=== PATIENT | female | born 1990 | race Caucasian/White ===

== ENCOUNTER 2020-03-07 19:47 | Emergency (ER) | payer MEDICAID ==
[2020-03-07] MEDS ORDERED: PANTOPRAZOLE SODIUM 40 MG VIAL IV ONE (20:43)
--- NOTE | 2020-03-07 20:47 | ER Document Report ---
ED Medical Screen (RME) - General Chief Complaint: Abdominal Pain Stated Complaint: ABDOMINAL PAIN Time Seen by Provider: 03/07/20 20:39 Primary Care Provider: ANH GUEVARA [Primary Care Provider] - Follow up as needed Notes: HPI: 29-year-old female with history of Crohn's disease presenting by EMS and sent to triage for evaluation for possible upper GI bleed. Patient states she began having pain across the abdomen generally that she normally associates with her Crohn's 2 days ago. Started having vomiting this afternoon states it was very dark. States that her mother who was a nurse told her it looked like old blood. Patient follows with gastroenterology at [facility] for her Crohn's. States she has never thrown up blood before. PHYSICAL EXAMINATION: Patient appears mildly uncomfortable is generalized abdominal pain on palpation limited exam by triage positioning. Bowel sounds are present in all quadrants. Not significantly tachycardic. I have greeted and performed a rapid initial assessment of this patient. A comprehensive ED assessment and evaluation of the patient, analysis of test results and completion of medical decision making process will be conducted by an additional ED providers. - Related Data Allergies/Adverse Reactions: Sulfa (Sulfonamide Antibiotics) Allergy (Verified 05/26/12 18:22) Home Medications: Phenergan. Disibramine. Oxycodone. morphine Past Medical History - Social History Chew tobacco use (# tins/day): No Drug Abuse: None GI Medical History: Reports: Hx Crohn's Disease - on asacol Psychiatric Medical History: Reports: Hx Depression - Immunizations Hx Diphtheria, Pertussis, Tetanus Vaccination: Yes Physical Exam - Vital signs Vitals: Temp Pulse Resp BP Pulse Ox 97.9 F 83 16 131/71 H 100 03/07/20 19:54 03/07/20 19:54 03/07/20 19:54 03/07/20 19:54 03/07/20 19:54 Course - Vital Signs Vital signs: Temp Pulse Resp BP Pulse Ox 97.9 F 83 16 131/71 H 100 03/07/20 20:35 03/07/20 19:54 03/07/20 19:54 03/07/20 19:54 03/07/20 19:54 Doctor's Discharge - Discharge Referrals: ANH GUEVARA [Primary Care Provider] - Follow up as needed
[2020-03-07] MEDS ORDERED: HYDROMORPHONE HCL INJ/PF 2 MG/ML AMPULE IV ONE (21:43)
[2020-03-07] MEDS ORDERED: ONDANSETRON HCL INJ/PF 4 MG/2 ML SDV IV ONE (21:44)
[2020-03-07] MEDS ORDERED: NORMAL SALINE 1000 ML 1,000 ML IV ONE (21:45)
--- NOTE | 2020-03-07 22:02 | ER Document Report ---
Entered by TINO PORTILLO SCRIBE 03/07/20 [id number] Acting as scribe for:OSCAR SNELL IV, MD ED GI/ - General Chief Complaint: Abdominal Pain Stated Complaint: ABDOMINAL PAIN Time Seen by Provider: 03/07/20 20:39 Primary Care Provider: ANH GUEVARA [NO ALEXANDRA MD] - Follow up as needed Mode of Arrival: Medic Information source: Patient Notes: This 29 year old female patient with a history of Crohn's disease brought in by EMS from home presents to the ED today with complaints of generalized abdominal pain that started x2 days ago. Patient states that the pain is typical of a flare-up and that she usually manages it with Oxycodone, Morphine, and Phenergan, but the pain was worse. She also reports that she had an episode of dark brown emesis yesterday that her grandmother, who was a nurse, said looked like blood. She mentions loose stools with small amounts of blood which is also typical of a flare-up, but denies dark stools. Patient received 8 mg Zofran, 50 mg Benadryl, and 100 mg Fentanyl via EMS. Patient is followed by gastroent erology at [facility]. - Related Data Allergies/Adverse Reactions: Sulfa (Sulfonamide Antibiotics) Allergy (Verified 05/26/12 18:22) Home Medications: Phenergan. Disibramine. Oxycodone. morphine Past Medical History - General Information source: Patient - Social History Smoking Status: Never Smoker Cigarette use (# per day): No Chew tobacco use (# tins/day): No Smoking Education Provided: No Drug Abuse: None Family History: Reviewed & Not Pertinent Patient has suicidal ideation: No Patient has homicidal ideation: No GI Medical History: Reports: Hx Crohn's Disease - on asacol Psychiatric Medical History: Reports: Hx Depression - Immunizations Hx Diphtheria, Pertussis, Tetanus Vaccination: Yes Review of Systems - Review of Systems Constitutional: No symptoms reported EENT: No symptoms reported Cardiovascular: No symptoms reported Respiratory: No symptoms reported Gastrointestinal: See HPI, Abdominal pain, Nausea, Vomiting, Blood in vomit. denies: Black stools Genitourinary: No symptoms reported Female Genitourinary: No symptoms reported Musculoskeletal: No symptoms reported Skin: No symptoms reported Hematologic/Lymphatic: No symptoms reported Neurological/Psychological: No symptoms reported -: Yes All other systems reviewed and negative Physical Exam - Vital signs Vitals: Temp Pulse Resp BP Pulse Ox 97.9 F 83 16 131/71 H 100 03/07/20 19:54 03/07/20 19:54 03/07/20 19:54 03/07/20 19:54 03/07/20 19:54 - General General appearance: Appears well, Alert In distress: None - HEENT Head: Normocephalic, Atraumatic Eyes: Normal Pupils: PERRL - Respiratory Respiratory status: No respiratory distress Chest status: Nontender Breath sounds: Normal Chest palpation: Normal - Cardiovascular Rhythm: Regular Heart sounds: Normal auscultation Murmur: No Friction rub: No Gallop: None auscultated - Abdominal Inspection: Normal Distension: No distension Bowel sounds: Normal Tenderness: Tender - Tenderness to palpation of bilateral lower quadrants, Other - Abdomen soft Organomegaly: No organomegaly - Back Back: Normal, Nontender - Extremities General upper extremity: Normal inspection General lower extremity: Normal inspection - Neurological Neuro grossly intact: Yes Orientation: AAOx4 [place] Coma Scale Eye Opening: Spontaneous [place] Coma Scale Verbal: Oriented [place] Coma Scale Motor: Obeys Commands Zandra Coma Scale Total: 15 - Psychological Associated symptoms: Normal affect, Normal mood - Skin Skin Temperature: Warm Skin Moisture: Dry Skin Color: Normal Course - Re-evaluation Re-evalutation: 03/08/20 02:40 Results of ED MSE discussed with patient. All questions were answered prior to discharge. Emergency signs and symptoms, reasons to return to the emergency department discussed with patient. - Vital Signs Vital signs: Temp Pulse Resp BP Pulse Ox 97.9 F 83 16 116/79 98 03/07/20 20:35 03/07/20 19:54 03/08/20 01:20 03/08/20 01:20 03/08/20 01:20 - Laboratory Result Diagrams: 03/07/20 22:05 03/07/20 23:57 - Diagnostic Test Radiology reviewed: Reports reviewed Discharge - Discharge Clinical Impression: Gastritis Qualifiers: Gastritis type: unspecified gastritis Chronicity: acute Gastritis bleeding: presence of bleeding unspecified Qualified Code(s): K29.00 - Acute gastritis without bleeding Condition: Stable Disposition: HOME, SELF-CARE Additional Instructions: Return to the Emergency Department without delay if any worse. HOME CARE INSTRUCTIONS & INFORMATION: Thank you for choosing us for your medical needs. We hope you're satisfied with the care you received. After you leave, you must properly care for your problem and, at the same time, observe its progress. Any condition can change. Some illnesses can change rapidly over hours or days. If your condition worsens, return to the Emergency Department or see your physician promptly. ABOUT YOUR X-RAYS AND EKG'S: If you had an EKG or X-rays taken, they have been read by the Emergency Physician. The X-rays and EKG's will also be read by a Radiologist or [facility] within 24 hours. If discrepancies are noted, you will be notified by telephone. Please be certain the ED has a correct telephone number & address where you can be reached. Also, realize that some fractures or abnormalities do not show up on initial X-rays. If your symptoms continue, see your physician. ABOUT YOUR LABORATORY TEST: If you had laboratory tests, the results have been reviewed by the Emergency Physician. Some test results (for example cultures) may not be available for several days. You will be contacted if any test result shows you need additional treatment. Please be certain the ED has a correct telephone number and address where you can be reached. ABOUT YOUR MEDICATIONS: You will receive instructions on how to take your medicine on the prescription label you receive. Additional information may be provided by the Pharmacy. If you have questions afterwards, call the ED for clarification or further instructions. Some prescribed medications may cause drowsiness. Do not perform tasks such as driving a car or operating machinery without consulting your Pharmacist. If you feel you need a refill of pain med ication, your condition will need re-evaluation. Please do not call for a refill of any medication. ABOUT YOUR SIGNATURE: Signature of this document acknowledges to followin. Understanding that you received emergency treatment and that you may be released before al medical problems are known or treated. Please be certain the ED has a correct phone number & address where you can be reached. 2. Acknowledgement that you will arrange for follow-up care as recommended. 3. Authorization for the Emergency Physician to provide information to your follow-up Physician in order to maximize your care. AT ANY TIME, IF YOUR SYMPTOMS CHANGE SIGNIFICANTLY OR WORSEN OR YOU DEVELOP NEW SYMPTOMS, RETURN TO THE EMERGENCY DEPARTMENT IMMEDIATELY FOR RE-EVALUATION. OUR GOAL IS TO PROVIDE EXCELLENT MEDICAL CARE! WE HOPE THAT WE HAVE MET YOUR EXPECTATIONS DURING YOUR EMERGENCY DEPARTMENT VISIT AND THAT YOU FEEL YOU HAVE RECEIVED EXCELLENT CARE! Gastritis You have an inflammation of the stomach called gastritis. This commonly causes upper abdominal pain, nausea, and vomiting. In severe cases, bleeding of the stomach lining can occur. Gastritis can be caused by bacteria or viruses, alcohol, or stomach-irritating drugs. Begin with sips of clear liquids. Take increasing amounts of fluid over the first 24 hours. Then start small amounts of bland foods (such as dry toast, applesauce, mashed potato). Gradually resume your usual diet. You should take antacids every two hours until the pain has subsided. Acid-suppressing drugs may be prescribed as well. Avoid aspirin, caffeine, tobacco, and alcohol. If the abdominal pain worsens, or there is evidence of major bleeding in the stomach (such as black, tarry stool, bloody or black vomit, or lightheadedness), you should return immediately. Call the doctor if you aren't improved in 24 to 36 hours. Prescriptions: Pantoprazole Sodium [Protonix [address] Tablet] 40 mg PO QAM #10 tablet. Referrals: LOCALMD,NO [NO LOCAL MD] - Follow up as needed I personally performed the services described in the documentation, reviewed and edited the documentation which was dictated to the scribe in my presence, and it accurately records my words and actions.
[2020-03-07 22:21] LABS: ABSOLUTE BASOPHILS # (AUTO) 0.1 10^3/uL (0.0-0.2); ABSOLUTE EOSINOPHILS # (AUTO) 0.1 10^3/uL (0.0-0.6); ABSOLUTE LYMPHOCYTES (AUTO) 1.1 10^3/uL (0.5-4.7); ABSOLUTE MONOCYTES (AUTO) 0.2 10^3/uL (0.1-1.4); ABSOLUTE NEUT (AUTO) 4.9 10^3/uL (1.7-8.2); BASOPHILS % (AUTO) 1.4 % (0-2); EOSINOPHILS % (AUTO) 1.2 % (0-6); HEMATOCRIT 40.3 % (36.0-47.0); HEMOGLOBIN 13.3 g/dL (12.0-15.5); LYMPHOCYTES % (AUTO) 17.4 % (13-45); MEAN CORPUSCULAR HEMOGLOBIN 27.6 pg (27.0-33.4); MEAN CORPUSCULAR HGB CONC 32.9 g/dL (32.0-36.0); MEAN CORPUSCULAR VOLUME 84 fl (80-97); MONOCYTES % (AUTO) 3.6 % (3-13); PLATELET COUNT 340 10^3/uL (150-450); RED BLOOD COUNT 4.82 10^6/uL (3.72-5.28); SEGMENTED NEUTROPHILS % (AUTO) 76.4 % (42-78); TOTAL CELLS COUNTED % (AUTO) 100 %; WHITE BLOOD COUNT 6.4 10^3/uL (4.0-10.5)
[2020-03-07 22:28] LABS: INTERNATIONAL RATION (INR) 0.97
[2020-03-08 00:27] LABS: ALBUMIN 4.7 g/dL (3.5-5.0); ALKALINE PHOSPHATASE 108 U/L (38-126); ANION GAP 10 (5-19); ASPARTATE AMINO TRANSFERASE 19 U/L (14-36); BILIRUBIN,TOTAL 0.5 mg/dL (0.2-1.3); BLOOD UREA NITROGEN 7 mg/dL (7-20); CALCIUM 9.7 mg/dL (8.4-10.2); CARBON DIOXIDE 24 mmol/L (22-30); CHLORIDE 105 mmol/L (98-107); GLUCOSE 85 mg/dL (75-110); POTASSIUM 4.4 mmol/L (3.6-5.0); TOTAL PROTEIN 7.8 g/dL (6.3-8.2)
[2020-03-08] MEDS ORDERED: HYDROMORPHONE HCL INJ/PF 2 MG/ML AMPULE IV ONE (01:06)
--- NOTE | 2020-03-08 01:58 | RADIOLOGY REPORT (SQ) ---
EXAM DESCRIPTION: [facility]: CT ABDOMEN PELVIS WITH IV CONTRAST CLINICAL HISTORY: 29 years Female; abd pain crohns hx, ? gi bleed; TECHNIQUE: CT of the abdomen and pelvis using intravenous contrast. All CT scans at this facility use dose modulation, iterative reconstruction, and/or weight based dosing when appropriate to reduce radiation dose to as low as reasonably achievable. COMPARISON: CT 05/04/2012 FINDINGS: Abdomen: Stomach: No significant distention or surrounding edema. Liver:No focal lesions. No intrahepatic ductal distention. Gallbladder:Nondistended Pancreas:Within normal limits Spleen:Within normal limits Right kidney:No hydronephrosis. No focal lesion. Left kidney:No hydronephrosis. No focal lesion. Adrenal glands:Within normal limits Vascular structures:Within normal limits Pelvis: Small bowel: Nondistended. No acute mesenteric edema. No wall thickening. Appendix: Not reliably identified. No regional edema. Colon: Moderate proximal colonic fecal retention. No acute pericolonic edema or significant distention. No free intraperitoneal fluid or air. Bones: No acute bone findings. Sacroiliac joints are normal. Bladder: Unremarkable. Uterus and ovaries are unremarkable. No acute pelvic soft tissue edema. IMPRESSION: 1. Normal CT of the abdomen and pelvis with contrast.
[2020-03-08] MEDS ORDERED: HYDROCODONE/ACETAMINOPHEN 5-325 MG (6 TAB/ER DISP) PO PRN (02:39)
[2020-03-08] MEDS ORDERED: PROMETHAZINE HCL INJ 25 MG/1 ML VIAL IV ONE (02:39)
[2020-03-08] MEDS ORDERED: ONDANSETRON HCL INJ/PF 4 MG/2 ML SDV IV ONE (02:40)
[2020-03-08 03:35] VITALS: BP 139/94
== END 2020-03-08 03:34 | disposition home or self-care (01) ==
LOC: ER 19:47
DX: K29.70 Gastritis, unspecified, without bleeding (principal); K50.90 Crohn's disease, unspecified, without complications; F32.9 Major depressive disorder, single episode, unspecified; Z79.899 Other long term (current) drug therapy; Z79.891 Long term (current) use of opiate analgesic
CPT/HCPCS: 96376; 99284; 96361; 96374; 96375; 86900; 86901; 36415; 86850; 83690; 84703; 85025; 85610; 80053; 74177; J1170 ×2; C9113; J2550; J2405 ×2; J7030

== ENCOUNTER 2020-05-02 19:08 | Emergency (ER) | payer MEDICAID ==
[2020-05-02] MEDS ORDERED: PROMETHAZINE HCL INJ 25 MG/1 ML VIAL IM ONE (21:10)
[2020-05-02] MEDS ORDERED: HYDROMORPHONE HCL INJ/PF 2 MG/ML AMPULE IM ONE (21:10)
--- NOTE | 2020-05-02 21:18 | ER Document Report ---
ED General - General Chief Complaint: Abdominal Pain Stated Complaint: VOMITING Time Seen by Provider: 05/02/20 20:32 Mode of Arrival: Ambulatory Information source: Patient Notes: Patient is a 29-year-old female coming in today with intractable abdominal pain, nausea and vomiting, some hemoptysis, and hematochezia. She has a history of Crohn's disease. She is on immune modulators for this. Does not feel that her disease is well controlled on current regimen. Patient reports being on very strong pain medicine and Phenergan at home. Says that her symptoms are usually very well managed at home. She has been vomiting uncontrollably for about the past 24 hours does not feel like her medicine has a chance to work. - Related Data Allergies/Adverse Reactions: Sulfa (Sulfonamide Antibiotics) Allergy (Verified 05/02/20 20:12) Past Medical History - General Information source: Patient - Social History Smoking Status: Former Smoker Family History: Reviewed & Not Pertinent Patient has homicidal ideation: No GI Medical History: Reports: Hx Crohn's Disease - on asacol Psychiatric Medical History: Reports: Hx Depression - Immunizations Hx Diphtheria, Pertussis, Tetanus Vaccination: Yes Review of Systems - Review of Systems Notes: Constitutional: No fevers. No chills. EENT: No eye redness. No eye pain. No ear pain. No sore throat. Cardiovascular: No chest pain. No palpitations. Respiratory: No cough. No shortness of breath. No respiratory distress. Gastrointestinal: +abdominal pain. Positive nausea, positive vomiting, positive hematochezia, positive hematemesis Genitourinary: Deferred Musculoskeletal: Atraumatic. No swelling. No deformities. Skin: No rash or lesions. Lymphatic: No swollen lymph nodes. Neurologic: No headache. No syncope. Psychiatric: No suicidal or homicidal ideation. Physical Exam - Vital signs Vitals: Temp Pulse Resp BP Pulse Ox 98.9 F 103 H 20 113/95 H 100 05/02/20 19:23 05/02/20 19:23 05/02/20 19:23 05/02/20 19:23 05/02/20 19:23 - Notes Notes: General: Well-developed, well-nourished. In no acute distress. Non-toxic appearing. Appears uncomfortable Cardiac: Well-perfused. Regular rate and rhythm. No murmurs, rubs, or gallops. Pulmonary: No respiratory distress. No cyanosis. Bilateral lung boogie are clear to auscultation. Abdominal: Non-distended. Non-rigid. Diffuse tenderness to palpation. No guarding or rebound. Bowel sounds present all 4 quadrants HEENT: Head is atraumatic. Conjunctivae not reddened. No tearing. PERRL. EOMI. Orbits atraumatic. No periorbital swelling or erythema. Oropharynx is without erythema, swelling, or exudates. Neck: Supple. No adenopathy. No meningismus. Dermatologic: Warm with good turgor. No rash. Atraumatic. Chest: Atraumatic. No chest wall tenderness to palpation. Musculoskeletal: Moves all extremities well. No range of motion deficits. no muscular or joint tenderness. No paraspinal muscle tenderness. no midline spinal tenderness or step-off. Genitourinary: Examination deferred Neurologic: No gross neurologic deficits. Psychiatric: Normal mood. Course - Re-evaluation Re-evalutation: 05/02/20 21:17 Nurses having difficulty finding an IV site. In the meantime we will give patient some Phenergan and Dilaudid IM 05/03/20 01:29 Patient has completely normal labs. No elevated lipase. No positive urinalysis. She is not actively throwing up here. Her hemoglobin is slightly low at 11. She apparently has the medications at home manage her pain very well. I do not see any reason to keep her in the ER this evening. She is tolerating fluids. She can call her GI doctor in the morning. Return if worse - Vital Signs Vital signs: Temp Pulse Resp BP Pulse Ox 98.9 F 103 H 20 113/95 H 100 05/02/20 19:23 05/02/20 19:23 05/02/20 19:23 05/02/20 19:23 05/02/20 19:23 - Laboratory Result Diagrams: 05/02/20 22:25 05/02/20 22:25 Laboratory results interpreted by me: 05/02/20 22:25 Hgb 11.4 L Hct 34.4 L Discharge - Discharge Clinical Impression: History of Crohn's disease Abdominal pain Qualifiers: Abdominal location: unspecified location Qualified Code(s): R10.9 - Unspecified abdominal pain Nausea and vomiting Qualifiers: Vomiting type: unspecified Vomiting Intractability: non-intractable Qualified Code(s): R11.2 - Nausea with vomiting, unspecified Condition: Good Disposition: HOME, SELF-CARE Instructions: Abdominal Pain ([facility]), Intravenous (IV) Fluids ([facility]), Antinausea Medication ([facility]), Reglan ([facility]) Additional Instructions: Use your normal pain medications. You can use Reglan in addition to Phenergan as needed for nausea. Call your veneer manufacturer for follow-up appointment. Return to the ED if somehow worse. Prescriptions: Metoclopramide HCl [Reglan 10 mg Tablet] 10 mg PO Q6HP PRN #30 tablet PRN Reason:
[2020-05-02] MEDS ORDERED: PROMETHAZINE HCL INJ 25 MG/1 ML VIAL IV ONE (21:37)
[2020-05-02] MEDS ORDERED: HYDROMORPHONE HCL INJ/PF 2 MG/ML AMPULE IV ONE ×2 (21:37→22:47)
[2020-05-02] MEDS: NORMAL SALINE 1000 ML 1,000 ML IV PRN (21:41)
[2020-05-02 22:37] LABS: ABSOLUTE BASOPHILS # (AUTO) 0.1 10^3/uL (0.0-0.2); ABSOLUTE EOSINOPHILS # (AUTO) 0.1 10^3/uL (0.0-0.6); ABSOLUTE LYMPHOCYTES (AUTO) 1.1 10^3/uL (0.5-4.7); ABSOLUTE MONOCYTES (AUTO) 0.3 10^3/uL (0.1-1.4); ABSOLUTE NEUT (AUTO) 3.9 10^3/uL (1.7-8.2); BASOPHILS % (AUTO) 1.2 % (0-2); EOSINOPHILS % (AUTO) 1.8 % (0-6); HEMATOCRIT 34.4 % (36.0-47.0); HEMOGLOBIN 11.4 g/dL (12.0-15.5); LYMPHOCYTES % (AUTO) 20.3 % (13-45); MEAN CORPUSCULAR HEMOGLOBIN 27.8 pg (27.0-33.4); MEAN CORPUSCULAR VOLUME 84 fl (80-97); MONOCYTES % (AUTO) 5.8 % (3-13); PLATELET COUNT 271 10^3/uL (150-450); RED BLOOD COUNT 4.09 10^6/uL (3.72-5.28); RED CELL DISTRIBUTION WIDTH 13.4 % (11.5-14.0); SEGMENTED NEUTROPHILS % (AUTO) 70.9 % (42-78); TOTAL CELLS COUNTED % (AUTO) 100 %; WHITE BLOOD COUNT 5.4 10^3/uL (4.0-10.5)
[2020-05-02 22:58] LABS: ALBUMIN 4.4 g/dL (3.5-5.0); ALKALINE PHOSPHATASE 86 U/L (38-126); ANION GAP 8 (5-19); ASPARTATE AMINO TRANSFERASE 17 U/L (14-36); BILIRUBIN,DIRECT 0.3 mg/dL (0.0-0.4); BILIRUBIN,TOTAL 0.4 mg/dL (0.2-1.3); BLOOD UREA NITROGEN 9 mg/dL (7-20); CALCIUM 9.2 mg/dL (8.4-10.2); CARBON DIOXIDE 28 mmol/L (22-30); CHLORIDE 104 mmol/L (98-107); GLUCOSE 93 mg/dL (75-110); POTASSIUM 4.3 mmol/L (3.6-5.0); TOTAL PROTEIN 7.5 g/dL (6.3-8.2)
[2020-05-02] MEDS ORDERED: METOCLOPRAMIDE HCL INJ/PF 10 MG/2 ML SDV IV ONE (23:47)
[2020-05-03] MEDS ORDERED: HYDROMORPHONE HCL INJ/PF 2 MG/ML AMPULE IM ONE (01:05)
[2020-05-03 01:18] LABS: APPEARANCE,URINE CLEAR; BILIRUBIN,URINE NEGATIVE (NEGATIVE); COLOR,URINE STRAW; GLUCOSE, URINE NEGATIVE (NEGATIVE); KETONES,URINE NEGATIVE (NEGATIVE); PROTEIN,URINE NEGATIVE (NEGATIVE); URINE SPECIFIC GRAVITY 1.006; UROBILINOGEN,URINE NEGATIVE mg/dL (<2.0)
[2020-05-03 01:36] VITALS: BP 115/68
[2020-05-03] MEDS: NORMAL SALINE 1000 ML 1,000 ML IV PRN (01:40)
== END 2020-05-03 01:41 | disposition home or self-care (01) ==
LOC: ER 19:08
DX: R11.2 Nausea with vomiting, unspecified (principal); R10.9 Unspecified abdominal pain; K50.90 Crohn's disease, unspecified, without complications; R04.2 Hemoptysis; K92.1 Melena; Z88.2 Allergy status to sulfonamides; Z87.891 Personal history of nicotine dependence
CPT/HCPCS: 96376; 99284; 96372; 96361 ×2; 96374; 96375; 36415; 83690; 84703; 85025; 80053; 81001; J2765; J1170 ×2; J2550; J7030 ×2

== ENCOUNTER 2020-05-13 17:14 | Emergency (ER) | payer MEDICAID ==
[2020-05-13] MEDS ORDERED: NORMAL SALINE 1000 ML 1,000 ML IV ONE (17:46)
--- NOTE | 2020-05-13 17:48 | ER Document Report ---
ED Medical Screen (RME) - General Chief Complaint: Abdominal Pain Stated Complaint: ABDOMINAL PAIN Time Seen by Provider: 05/13/20 17:42 Mode of Arrival: Medic Information source: Patient Notes: 29-year-old female presented to ED for complaint of abdominal pain all over. She states she has been nauseated vomiting no fevers or chills very very weak. She states she does not smoke drink or use any drugs. She does have a history of Crohn's disease fibromyalgia psoriatic arthritis and psoriasis. She states her last menstrual period was 05/07/20. Patient is alert oriented respirations regular nonlabored speaking in full sentences. She states she does not know if it is her chronic. She stated she is taking all of her normal medications. I have greeted and performed a rapid initial assessment of this patient. A comprehensive ED assessment and evaluation of the patient, analysis of test results and completion of medical decision making process will be conducted by an additional ED providers. - Related Data Allergies/Adverse Reactions: Sulfa (Sulfonamide Antibiotics) Allergy (Verified 05/13/20 17:45) Past Medical History GI Medical History: Reports: Hx Crohn's Disease - on asacol Psychiatric Medical History: Reports: Hx Depression - Immunizations Hx Diphtheria, Pertussis, Tetanus Vaccination: Yes Physical Exam - Vital signs Vitals: Temp Pulse Resp BP Pulse Ox 98.9 F 109 H 16 124/84 100 05/13/20 17:19 05/13/20 17:19 05/13/20 17:19 05/13/20 17:19 05/13/20 17:19 Course - Vital Signs Vital signs: Temp Pulse Resp BP Pulse Ox 98.9 F 109 H 16 124/84 100 05/13/20 17:19 05/13/20 17:19 05/13/20 17:19 05/13/20 17:19 05/13/20 17:19
--- NOTE | 2020-05-13 22:28 | ER Document Report ---
ED GI/ - General Chief Complaint: Abdominal Pain Stated Complaint: ABDOMINAL PAIN Time Seen by Provider: 05/13/20 17:42 Mode of Arrival: Medic Information source: Patient, Emergency Med Personnel Notes: LAST SEEN Emergency Provider: DAGMAR NEELYevelynunt Number: [id number] Date: 05/02/20 21:13 Initialization Date: 05/02/20 21:13 ED General - General Chief Complaint: Abdominal Pain Stated Complaint: VOMITING Time Seen by Provider: 05/02/20 20:32 Mode of Arrival: Ambulatory Information source: Patient Notes: Patient is a 29-year-old female coming in today with intractable abdominal pain, nausea and vomiting, some hemoptysis, and hematochezia. She has a history of Crohn's disease. She is on immune modulators for this. Does not feel that her disease is well controlled on current regimen. Patient reports being on very strong pain medicine and Phenergan at home. Says that her symptoms are usually very well managed at home. She has been vomiting uncontrollably for about the past 24 hours does not feel like her medicine has a chance to work. 05/13/20 17:48 - ED Nursing Note by JIM PAEZ Acct Num: [id number] : 1990 Patient Age: 29 pt reports todays she began having nausea, weakness and vomiting this morning along with "sever" abdominal pain ED Medical Screen ([facility]) - General Chief Complaint: Abdominal Pain Stated Complaint: ABDOMINAL PAIN Time Seen by Provider: 05/13/20 17:42 Mode of Arrival: Medic Information source: Patient Notes: 29-year-old female presented to ED for complaint of abdominal pain all over. She states she has been nauseated vomiting no fevers or chills very very weak. She states she does not smoke drink or use any drugs. She does have a history of Crohn's disease fibromyalgia psoriatic arthritis and psoriasis. She states her last menstrual period was 05/07/20. Patient is alert oriented respirations regular nonlabored speaking in full sentences. She states she does not know if it is her chronic. She stated she is taking all of her normal medications. MY NOTES 29-year-old female arrives with abdominal pain nausea vomiting feeling weak and has a history of Crohn's disease fibromyalgia psoriatic arthritis and psoriasis. She has been seen here on a monthly basis for the last 3 visits. Prior to that she had not been seen here since 2012. At that time she was seen by Dr. Carrie Austin because of migraines. Patient reported to her [id number] that the patient was seen Dr. Carson in [place] and was on Asacol azathioprine Remicade and Bentyl for Crohn's. please note on last exam it revealed her home meds were Phenergan oxycodone and morphine but today her medications include Bentyl Cymbalta Reglan Asacol Zofran Protonix Lyrica and Ultram. A CT scan on 08 March 2020 was normal per radiologist. Patient reports she began to have diffuse but especially epigastric pain since 1600 hrs. yesterday. She has had multiple bouts of vomiting and now is quite dry and unable to hold any fluids down. She reports since she switched from Remicade to Stelara by order of [facility] 2 years ago she has had more recurrences of abdominal pain. She does not know why they switched from her Remicade. She believes she may need a local battery charger tester. Her abdominal pain is around a 6-7 out of 10. Patient has a short haircut with a lip ring and dry tongue and points to her epigastric area with her left hand. She reports her grandmother has been called to drive her home and she came in [facility] by EMS. Patient reports she only has an allergy to sulfa drugs. TRAVEL OUTSIDE OF THE [place] IN LAST 30 DAYS: No - HPI Patient complains to provider of: Abdominal pain Onset: Yesterday Timing/Duration: Persistent, Worse Quality of pain: Achy Severity at maximum: Severe Severity in ED: Severe Pain Level: 3 Context: Other - crohns ... I advised patient multiple CT scans of abdomen run a 2% risk for leukemia. Location: Epigastric, LUQ, RUQ - Related Data Allergies/Adverse Reactions: Sulfa (Sulfonamide Antibiotics) Allergy (Verified 05/13/20 17:45) Past Medical History - General Information source: Patient - Social History Smoking Status: Never Smoker Cigarette use (# per day): No Chew tobacco use (# tins/day): No Smoking Education Provided: No Frequency of alcohol use: None Drug Abuse: None Lives with: Grandparent(s) Family History: Reviewed & Not Pertinent Patient has suicidal ideation: No Patient has homicidal ideation: No GI Medical History: Reports: Hx Crohn's Disease - on asacol Psychiatric Medical History: Reports: Hx Depression - Immunizations Hx Diphtheria, Pertussis, Tetanus Vaccination: Yes Review of Systems - Review of Systems Constitutional: See HPI, Malaise, Weakness, Recent illness EENT: See HPI, Other - dry mouth Cardiovascular: No symptoms reported Respiratory: No symptoms reported Gastrointestinal: See HPI, Abdominal pain, Nausea, Vomiting Genitourinary: No symptoms reported Female Genitourinary: No symptoms reported Musculoskeletal: No symptoms reported Skin: No symptoms reported Hematologic/Lymphatic: No symptoms reported Neurological/Psychological: See HPI, Weakness -: Yes All other systems reviewed and negative Physical Exam - Vital signs Vitals: Temp Pulse Resp BP Pulse Ox 98.9 F 109 H 16 124/84 100 05/13/20 17:19 05/13/20 17:19 05/13/20 17:19 05/13/20 17:19 05/13/20 17:19 Interpretation: Tachycardic - General General appearance: Appears well, Alert - HEENT Head: Normocephalic, Atraumatic Eyes: Normal Pupils: PERRL - Respiratory Respiratory status: No respiratory distress Chest status: Nontender Breath sounds: Normal Chest palpation: Normal - Cardiovascular Rhythm: Regular Heart sounds: Normal auscultation Murmur: No - Abdominal Inspection: Obese Distension: No distension Bowel sounds: Hyperactive Tenderness: Tender - Epigastric and right upper left upper quadrant abdominal pain on palpation Organomegaly: No organomegaly - Rectal Hemorrhoids: Other - deferred - Genitourinary Bimanuel exam: Other - deferred - Back Back: Normal, Nontender - Extremities General upper extremity: Normal inspection, Nontender, Normal color, Normal ROM, Normal temperature General lower extremity: Normal inspection, Nontender, Normal color, Normal ROM, Normal temperature, Normal weight bearing. No: Xochitl's sign - Neurological Neuro grossly intact: Yes Cognition: Normal Orientation: AAOx4 Zandra Coma Scale Eye Opening: Spontaneous Zandra Coma Scale Verbal: Oriented [place] Coma Scale Motor: Obeys Commands Zandra Coma Scale Total: 15 Speech: Normal Motor strength normal: LUE, RUE, LLE, RLE Sensory: Normal - Psychological Associated symptoms: Normal affect, Normal mood - Skin Skin Temperature: Warm Skin Moisture: Dry Skin Color: Normal Course - Vital Signs Vital signs: Temp Pulse Resp BP Pulse Ox 98.9 F 109 H 16 124/84 100 05/13/20 17:19 05/13/20 17:19 05/13/20 17:19 05/13/20 17:19 05/13/20 17:19 - Laboratory Result Diagrams: 05/13/20 23:20 05/13/20 23:20 Laboratory results interpreted by me: 05/13/20 23:20 BUN 6 L - Diagnostic Test Radiology reviewed: Reports reviewed - KUB with no free air or SBO Critical Care Note - Critical Care Note Comments: Patient much improved by 0100 on reinspection. Discharge - Discharge Clinical Impression: Dehydration Crohn disease Qualifiers: Gastrointestinal tract location: unspecified location Digestive disease complication type: unspecified complication Qualified Code(s): K50.919 - Crohn's disease, unspecified, with unspecified complications N&V (nausea and vomiting) Qualifiers: Vomiting type: unspecified Vomiting Intractability: unspecified Qualified Code(s): R11.2 - Nausea with vomiting, unspecified Condition: Stable Disposition: HOME, SELF-CARE Instructions: Abdominal Pain ([facility]) Additional Instructions: Follow-up with battery charger tester for your Crohn's disease and may use a local gastroenterologists like Dr. Keller or . Continue with your medications until seen by your PMD or battery charger tester. Take nausea and vomiting medicines as needed as well as Decadron for the next 5 days. Prescriptions: Prochlorperazine Maleate [Compazine 10 mg Tablet] 10 mg PO ASDIR PRN #10 tablet PRN Reason: Dexamethasone [Decadron 4 Mg Tablet] 4 mg PO DAILY #5 tablet Forms: Return to Work
[2020-05-13] MEDS ORDERED: PROMETHAZINE HCL INJ 25 MG/1 ML VIAL IM ONE (22:56)
[2020-05-13] MEDS ORDERED: HYDROMORPHONE HCL INJ/PF 2 MG/ML AMPULE IM ONE (22:56)
[2020-05-13] MEDS ORDERED: DEXAMETHASONE SOD PHOS INJ 10 MG/1 ML VIAL IM ONE (22:57)
[2020-05-13] MEDS ORDERED: HYDROMORPHONE HCL INJ/PF 2 MG/ML AMPULE IV ONE (23:36)
[2020-05-13] MEDS ORDERED: DEXAMETHASONE SOD PHOS INJ 10 MG/1 ML VIAL IV ONE (23:36)
[2020-05-13] MEDS ORDERED: PROMETHAZINE HCL INJ 25 MG/1 ML VIAL IV ONE (23:36)
[2020-05-13 23:38] LABS: ABSOLUTE BASOPHILS # (AUTO) 0.1 10^3/uL (0.0-0.2); ABSOLUTE LYMPHOCYTES (AUTO) 1.1 10^3/uL (0.5-4.7); ABSOLUTE MONOCYTES (AUTO) 0.5 10^3/uL (0.1-1.4); ABSOLUTE NEUT (AUTO) 4.9 10^3/uL (1.7-8.2); BASOPHILS % (AUTO) 0.8 % (0-2); EOSINOPHILS % (AUTO) 0.3 % (0-6); HEMATOCRIT 38.6 % (36.0-47.0); HEMOGLOBIN 12.9 g/dL (12.0-15.5); LYMPHOCYTES % (AUTO) 17.2 % (13-45); MEAN CORPUSCULAR HEMOGLOBIN 27.8 pg (27.0-33.4); MEAN CORPUSCULAR HGB CONC 33.3 g/dL (32.0-36.0); MEAN CORPUSCULAR VOLUME 83 fl (80-97); MONOCYTES % (AUTO) 7.3 % (3-13); PLATELET COUNT 264 10^3/uL (150-450); RED BLOOD COUNT 4.64 10^6/uL (3.72-5.28); RED CELL DISTRIBUTION WIDTH 13.7 % (11.5-14.0); SEGMENTED NEUTROPHILS % (AUTO) 74.4 % (42-78); TOTAL CELLS COUNTED % (AUTO) 100 %; WHITE BLOOD COUNT 6.6 10^3/uL (4.0-10.5)
[2020-05-13 23:56] LABS: ALBUMIN 4.8 g/dL (3.5-5.0); ALKALINE PHOSPHATASE 95 U/L (38-126); ANION GAP 10 (5-19); ASPARTATE AMINO TRANSFERASE 16 U/L (14-36); BILIRUBIN,DIRECT 0.3 mg/dL (0.0-0.4); BILIRUBIN,TOTAL 0.6 mg/dL (0.2-1.3); BLOOD UREA NITROGEN 6 mg/dL (7-20); CALCIUM 9.9 mg/dL (8.4-10.2); CARBON DIOXIDE 26 mmol/L (22-30); CHLORIDE 104 mmol/L (98-107); GLUCOSE 93 mg/dL (75-110); POTASSIUM 4.7 mmol/L (3.6-5.0); TOTAL PROTEIN 8.1 g/dL (6.3-8.2)
--- NOTE | 2020-05-14 00:12 | RADIOLOGY REPORT (SQ) ---
CLINICAL INDICATION: pain n/v. TECHNIQUE: 2 AP supine image(s) of the abdomen. COMPARISON: None. FINDINGS: A nonspecific gas pattern is identified. No evidence of high grade obstruction. . Visualized bones are unremarkable. IMPRESSION: No acute intra-abdominal process is identified.
[2020-05-14 01:26] VITALS: BP 121/79
[2020-05-14] MEDS ORDERED: KETOROLAC TROMETHAMINE INJ/PF 30 MG/1 ML SDV ONE (01:29)
[2020-05-14] MEDS ORDERED: KETOROLAC TROMETHAMINE INJ/PF 30 MG/1 ML SDV IV ONE (01:30)
[2020-05-14] MEDS ORDERED: PROCHLORPERAZINE EDISYLATE INJ 10 MG/2 ML VIAL IV ONE (01:53)
== END 2020-05-14 02:12 | disposition home or self-care (01) ==
LOC: ER 17:14
DX: K50.919 Crohn's disease, unspecified, with unspecified complications (principal); K92.0 Hematemesis; K92.1 Melena; R10.84 Generalized abdominal pain; R53.81 Other malaise; R53.1 Weakness; E86.0 Dehydration; M79.7 Fibromyalgia; L40.50 Arthropathic psoriasis, unspecified; F32.9 Major depressive disorder, single episode, unspecified; Z79.899 Other long term (current) drug therapy; Z88.2 Allergy status to sulfonamides
CPT/HCPCS: 99284; 96361; 96374; 96375; 36415; 83690; 84703; 85025; 80053; 74018; J1885; J1170; J0780; J2550; J7030; J1100

== ENCOUNTER 2020-05-25 14:13 | Emergency (ER) | payer MEDICAID ==
[2020-05-25] MEDS ORDERED: ONDANSETRON HCL INJ/PF 4 MG/2 ML SDV IV ONE (15:28)
[2020-05-25] MEDS ORDERED: NORMAL SALINE 1000 ML 1,000 ML IV ONE (15:28)
--- NOTE | 2020-05-25 15:31 | ER Document Report ---
ED Medical Screen (RME) - General Chief Complaint: Diarrhea Stated Complaint: DIARRHEA,ABDOMINAL PAIN,RASH Time Seen by Provider: 05/25/20 15:22 TRAVEL OUTSIDE OF THE [place]. IN LAST 30 DAYS: No - HPI Notes: 05/25/20 15:29 29-year-old female with a history of Crohn's disease and C. difficile presents to the emergency room with right lower quadrant, left lower quadrant abdominal pain that is getting worse over the last 3 days. Patient states that she has nausea and vomiting, has not been able to eat or drink anything in the last 2 days, has not tried any [id number] medication. Reports her last bowel movement was 1230 today, does report melena but she says this is associated with her Crohn's disease. Patient states that it is "smells like C. difficile", states she has had C. difficile before and it smells very similar. Denies any fevers chills, chest pain, shortness of breath. Last menstrual cycle was 05/11/2020. Last colonoscopy was a year ago. She does follow with a garage helper with [facility] I have greeted and performed a rapid initial assessment of this patient. A comprehensive ED assessment and evaluation of the patient, analysis of test results and completion of the medical decision making process will be conducted by additional ED providers. PHYSICAL EXAMINATION: GENERAL: Well-appearing, well-nourished and in no acute distress. CV: s1, s2 regular LUNGS: No respiratory distress abd: RLQ, LLQ abd pain - Related Data Allergies/Adverse Reactions: Sulfa (Sulfonamide Antibiotics) Allergy (Verified 05/25/20 15:21) Home Medications: CHRONS. FIBROMYALGIA. PSORASIS. ARTHRITIS Past Medical History - Social History Chew tobacco use (# tins/day): No Frequency of alcohol use: None Drug Abuse: None GI Medical History: Reports: Hx Crohn's Disease - on asacol Psychiatric Medical History: Reports: Hx Depression - Immunizations Hx Diphtheria, Pertussis, Tetanus Vaccination: Yes Physical Exam - Vital signs Vitals: Temp Pulse Resp BP Pulse Ox 99.5 F 96 20 143/89 H 100 05/25/20 15:02 05/25/20 15:02 05/25/20 15:02 05/25/20 15:02 05/25/20 15:02 Course - Vital Signs Vital signs: Temp Pulse Resp BP Pulse Ox 99.5 F 96 20 143/89 H 100 05/25/20 15:21 05/25/20 15:02 05/25/20 15:02 05/25/20 15:02 05/25/20 15:02
--- NOTE | 2020-05-25 18:22 | RADIOLOGY REPORT (SQ) ---
EXAM DESCRIPTION: ACUTE ABDOMEN SERIES IMAGES COMPLETED DATE/TIME: 05/25/2020 6:04 pm REASON FOR STUDY: RLQ, LLQ abd pain, N/v/d. COMPARISON: None. NUMBER OF VIEWS: Three views. TECHNIQUE: Frontal chest, supine abdomen and upright/decubitus abdomen radiographic images acquired. LIMITATIONS: None. FINDINGS: CHEST: Lungs clear of infiltrates. FREE AIR: None. No abnormal gas collections. BOWEL GAS PATTERN: Nonobstructive pattern. No dilated loops or air fluid levels. CONSTIPATION: moderate. CALCIFICATIONS: No suspicious calcifications. HARDWARE: None in the abdomen. SOFT TISSUES: No gross mass or suggestion of organomegaly. BONES: No acute fracture. No worrisome bone lesions. OTHER: No other significant finding. IMPRESSION: NO RADIOGRAPHIC EVIDENCE FOR ACUTE ABDOMINAL DISEASE. CONSTIPATION. TECHNICAL DOCUMENTATION: JOB ID: [id number] 2010 [employer]- All Rights Reserved Reading location - IP/workstation name: [email or web address]
[2020-05-25] MEDS ORDERED: MORPHINE SULFATE 10 MG/ML INJ IM ONE (18:34)
[2020-05-25] MEDS ORDERED: METOCLOPRAMIDE HCL INJ/PF 10 MG/2 ML SDV IM ONE (18:34)
--- NOTE | 2020-05-25 18:34 | ER Document Report ---
ED General - General Chief Complaint: Diarrhea Stated Complaint: DIARRHEA,ABDOMINAL PAIN,RASH Time Seen by Provider: 05/25/20 15:22 Mode of Arrival: Ambulatory Information source: Patient Notes: Patient is a 29-year-old female with a history of Crohn's disease and psoriatic arthritis coming in with abdominal pain for the past few days. Also having foul-smelling diarrhea. "It smells like C. difficile". Patient has had history of C. difficile before. She is on immune modulating drugs. She has no fevers or chills. No intractable vomiting. TRAVEL OUTSIDE OF THE [place] IN LAST 30 DAYS: No - Related Data Allergies/Adverse Reactions: Sulfa (Sulfonamide Antibiotics) Allergy (Verified 05/25/20 15:21) Home Medications: CHRONS. FIBROMYALGIA. PSORASIS. ARTHRITIS Past Medical History - Social History Smoking Status: Never Smoker Chew tobacco use (# tins/day): No Frequency of alcohol use: None Drug Abuse: None Family History: Reviewed & Not Pertinent Patient has homicidal ideation: No GI Medical History: Reports: Hx Crohn's Disease - on asacol Psychiatric Medical History: Reports: Hx Depression - Immunizations Hx Diphtheria, Pertussis, Tetanus Vaccination: Yes Review of Systems - Review of Systems Notes: Constitutional: No fevers. +chills. EENT: No eye redness. No eye pain. No ear pain. No sore throat. Cardiovascular: No chest pain. No palpitations. Respiratory: No cough. No shortness of breath. No respiratory distress. Gastrointestinal: Left and right lower quadrant pain. Positive diarrhea. Positive nausea Genitourinary: Atraumatic. No lesions. No pain. No discharge. Musculoskeletal: Atraumatic. No swelling. No deformities. Skin: No rash or lesions. Lymphatic: No swollen lymph nodes. Neurologic: No headache. No syncope. Psychiatric: No suicidal or homicidal ideation. Physical Exam - Vital signs Vitals: Temp Pulse Resp BP Pulse Ox 99.5 F 96 20 143/89 H 100 05/25/20 15:02 05/25/20 15:02 05/25/20 15:02 05/25/20 15:02 05/25/20 15:02 - Notes Notes: General: Well-developed, well-nourished. In no acute distress. Non-toxic appearing. Cardiac: Well-perfused. Regular rate and rhythm. No murmurs, rubs, or gallops. Pulmonary: No respiratory distress. No cyanosis. Bilateral lung boogie are clear to auscultation. Abdominal: Abdomen is soft. Mildly tender across the lower part of the abdomen. No guarding or rebound. Bowel sounds present all 4 quadrants. No CVA t enderness. HEENT: Head is atraumatic. Conjunctivae not reddened. No tearing. PERRL. EOMI. Orbits atraumatic. No periorbital swelling or erythema. Oropharynx is without erythema, swelling, or exudates. Neck: Supple. No adenopathy. No meningismus. Dermatologic: Warm with good turgor. No rash. Atraumatic. Chest: Atraumatic. No chest wall tenderness to palpation. Musculoskeletal: Moves all extremities well. No range of motion deficits. no muscular or joint tenderness. No paraspinal muscle tenderness. no midline spinal tenderness or step-off. Genitourinary: Examination deferred Neurologic: No gross neurologic deficits. Psychiatric: Normal mood. Course - Re-evaluation Re-evalutation: 05/25/20 18:31 Patient reports a history of C. difficile in the past. We are waiting for labs which will have to be done by phlebotomy. Nurses unable to find IV line even with ultrasound. Will offer medicines IM for the meantime. 05/25/20 20:52 Patient again asking for more nausea and pain medication. She has normal labs. Has not been able to provide a specimen of diarrhea for us to check for C. difficile. She has not been throwing up here. 05/25/20 22:27 Unable to provide stool specimen for testing. All of her labs are normal. She Has not thrown up one time here. Definitely does not fit the clinical picture for C. difficile colitis. She definitely has history of Crohn's. She did have some blood on her Hemoccult card. She is not febrile. She does not have an elevated white blood cell count. She is not anemic. Until she is able to provide a stool specimen, will generically treat this as abdominal pain and diarrhea. Will offer her a short course of Bentyl for her spasms. - Vital Signs Vital signs: Temp Pulse Resp BP Pulse Ox 98.8 F 92 16 122/80 99 05/25/20 20:11 05/25/20 20:11 05/25/20 20:11 05/25/20 20:11 05/25/20 20:11 - Laboratory Result Diagrams: 05/25/20 19:01 05/25/20 19:08 Laboratory results interpreted by me: 05/25/20 05/25/20 19:01 19:08 Hgb 10.8 L Hct 31.9 L BUN 6 L Discharge - Discharge Clinical Impression: Diarrhea Qualifiers: Diarrhea type: unspecified type Qualified Code(s): R19.7 - Diarrhea, unspecifie d Abdominal pain Qualifiers: Abdominal location: unspecified location Qualified Code(s): R10.9 - Unspecified abdominal pain Condition: Good Disposition: HOME, SELF-CARE Instructions: Antispasmodics ([facility]), Abdominal Pain ([facility]), Diarrhea, Nonspecific ([facility]) Additional Instructions: Please see your doctor to get some outpatient stool studies done. You can take Bentyl as needed for intestinal cramping and spasm. Please work on trying to get situated with a new conservation worker. You may return to the emergency department anytime if worse. Prescriptions: Dicyclomine HCl [Bentyl 10 mg Capsule] 10 mg PO Q6HP PRN #12 capsule PRN Reason: Referrals: REESE VERA MD [ACTIVE STAFF] - Follow up as needed
[2020-05-25 19:08] LABS: ABSOLUTE BASOPHILS # (AUTO) 0.1 10^3/uL (0.0-0.2); ABSOLUTE EOSINOPHILS # (AUTO) 0.1 10^3/uL (0.0-0.6); ABSOLUTE LYMPHOCYTES (AUTO) 1.2 10^3/uL (0.5-4.7); ABSOLUTE MONOCYTES (AUTO) 0.4 10^3/uL (0.1-1.4); ABSOLUTE NEUT (AUTO) 4.6 10^3/uL (1.7-8.2); BASOPHILS % (AUTO) 1.4 % (0-2); EOSINOPHILS % (AUTO) 2.1 % (0-6); HEMATOCRIT 31.9 % (36.0-47.0); HEMOGLOBIN 10.8 g/dL (12.0-15.5); MEAN CORPUSCULAR HEMOGLOBIN 28.1 pg (27.0-33.4); MEAN CORPUSCULAR HGB CONC 33.8 g/dL (32.0-36.0); MEAN CORPUSCULAR VOLUME 83 fl (80-97); MONOCYTES % (AUTO) 6.3 % (3-13); PLATELET COUNT 238 10^3/uL (150-450); RED BLOOD COUNT 3.84 10^6/uL (3.72-5.28); RED CELL DISTRIBUTION WIDTH 13.7 % (11.5-14.0); SEGMENTED NEUTROPHILS % (AUTO) 72.2 % (42-78); TOTAL CELLS COUNTED % (AUTO) 100 %; WHITE BLOOD COUNT 6.4 10^3/uL (4.0-10.5)
[2020-05-25 19:38] LABS: ALBUMIN 4.1 g/dL (3.5-5.0); ALKALINE PHOSPHATASE 82 U/L (38-126); ANION GAP 9 (5-19); ASPARTATE AMINO TRANSFERASE 15 U/L (14-36); BILIRUBIN,DIRECT 0.3 mg/dL (0.0-0.4); BILIRUBIN,TOTAL 0.4 mg/dL (0.2-1.3); BLOOD UREA NITROGEN 6 mg/dL (7-20); CALCIUM 9.4 mg/dL (8.4-10.2); CARBON DIOXIDE 22 mmol/L (22-30); CHLORIDE 107 mmol/L (98-107); GLUCOSE 95 mg/dL (75-110); POTASSIUM 4.5 mmol/L (3.6-5.0); TOTAL PROTEIN 7.1 g/dL (6.3-8.2)
[2020-05-25] MEDS ORDERED: DICYCLOMINE HCL 20 MG TABLET PO ONE (20:52)
[2020-05-25] MEDS ORDERED: PROMETHAZINE HCL INJ 25 MG/1 ML VIAL IM ONE (20:52)
[2020-05-25 22:11] LABS: APPEARANCE,URINE CLEAR; BILIRUBIN,URINE NEGATIVE (NEGATIVE); COLOR,URINE STRAW; GLUCOSE, URINE NEGATIVE (NEGATIVE); KETONES,URINE NEGATIVE (NEGATIVE); LEUKOCYTE ESTERASE,URINE NEGATIVE (NEGATIVE); NITRITE,URINE NEGATIVE (NEGATIVE); PROTEIN,URINE NEGATIVE (NEGATIVE); URINE SPECIFIC GRAVITY 1.009; UROBILINOGEN,URINE NEGATIVE mg/dL (<2.0)
[2020-05-25 22:31] VITALS: BP 107/61
== END 2020-05-25 22:30 | disposition home or self-care (01) ==
LOC: ER 14:13
DX: R19.7 Diarrhea, unspecified (principal); R10.9 Unspecified abdominal pain; K50.90 Crohn's disease, unspecified, without complications; R21 Rash and other nonspecific skin eruption; Z88.2 Allergy status to sulfonamides
CPT/HCPCS: 99285; 96372; 36415; 83690; 85025; 80053; 81001; 74022; J3490; J2765; J2270; J2550

== ENCOUNTER 2020-07-08 16:47 | Emergency (ER) | payer MEDICAID ==
[2020-07-08] MEDS ORDERED: PANTOPRAZOLE SODIUM 40 MG VIAL IV ONE (17:28)
[2020-07-08] MEDS ORDERED: MORPHINE SULFATE 10 MG/ML INJ IV ONE ×2 (17:28→19:43)
[2020-07-08] MEDS ORDERED: FAMOTIDINE INJ/PF 20 MG/2 ML SDV IV ONE (17:28)
[2020-07-08] MEDS ORDERED: ONDANSETRON HCL INJ/PF 4 MG/2 ML SDV IV ONE (17:29)
[2020-07-08] MEDS ORDERED: NORMAL SALINE 1000 ML 1,000 ML IV ONE (17:29)
[2020-07-08 17:36] LABS: ABSOLUTE BASOPHILS # (AUTO) 0.1 10^3/uL (0.0-0.2); ABSOLUTE EOSINOPHILS # (AUTO) 0.1 10^3/uL (0.0-0.6); ABSOLUTE LYMPHOCYTES (AUTO) 0.9 10^3/uL (0.5-4.7); ABSOLUTE MONOCYTES (AUTO) 0.3 10^3/uL (0.1-1.4); ABSOLUTE NEUT (AUTO) 4.1 10^3/uL (1.7-8.2); BASOPHILS % (AUTO) 1.2 % (0-2); EOSINOPHILS % (AUTO) 1.8 % (0-6); HEMATOCRIT 35.6 % (36.0-47.0); HEMOGLOBIN 11.4 g/dL (12.0-15.5); LYMPHOCYTES % (AUTO) 16.4 % (13-45); MEAN CORPUSCULAR HEMOGLOBIN 27.4 pg (27.0-33.4); MEAN CORPUSCULAR HGB CONC 32.1 g/dL (32.0-36.0); MEAN CORPUSCULAR VOLUME 85 fl (80-97); PLATELET COUNT 281 10^3/uL (150-450); RED BLOOD COUNT 4.17 10^6/uL (3.72-5.28); RED CELL DISTRIBUTION WIDTH 13.7 % (11.5-14.0); SEGMENTED NEUTROPHILS % (AUTO) 75.6 % (42-78); TOTAL CELLS COUNTED % (AUTO) 100 %; WHITE BLOOD COUNT 5.4 10^3/uL (4.0-10.5)
[2020-07-08 17:59] LABS: ALBUMIN 4.8 g/dL (3.5-5.0); ALKALINE PHOSPHATASE 107 U/L (38-126); ANION GAP 12 (5-19); ASPARTATE AMINO TRANSFERASE 20 U/L (14-36); BILIRUBIN,DIRECT 0.3 mg/dL (0.0-0.4); BILIRUBIN,TOTAL 0.6 mg/dL (0.2-1.3); BLOOD UREA NITROGEN 6 mg/dL (7-20); CALCIUM 9.8 mg/dL (8.4-10.2); CARBON DIOXIDE 24 mmol/L (22-30); CHLORIDE 105 mmol/L (98-107); GLUCOSE 100 mg/dL (75-110); POTASSIUM 4.6 mmol/L (3.6-5.0); TOTAL PROTEIN 8.5 g/dL (6.3-8.2)
[2020-07-08 18:02] LABS: C-REACTIVE PROTEIN < 5.0 mg/L (<10.0)
[2020-07-08 18:25] LABS: ERYTHROCYTE SEDIMENTATION RATE 17 mm/hr (0-20)
[2020-07-08] MEDS ORDERED: METOCLOPRAMIDE HCL INJ/PF 10 MG/2 ML SDV IV ONE (19:41)
[2020-07-08 20:16] LABS: APPEARANCE,URINE CLEAR; BILIRUBIN,URINE NEGATIVE (NEGATIVE); COLOR,URINE STRAW; GLUCOSE, URINE NEGATIVE (NEGATIVE); KETONES,URINE NEGATIVE (NEGATIVE); LEUKOCYTE ESTERASE,URINE NEGATIVE (NEGATIVE); NITRITE,URINE NEGATIVE (NEGATIVE); PROTEIN,URINE NEGATIVE (NEGATIVE); URINE SPECIFIC GRAVITY 1.004; UROBILINOGEN,URINE NEGATIVE mg/dL (<2.0)
--- NOTE | 2020-07-08 20:35 | ER Document Report ---
ED GI/ - General Mode of Arrival: Ambulatory Information source: Patient TRAVEL OUTSIDE OF THE [place].S. IN LAST 30 DAYS: No <HUGH ISRAEL - Last Filed: 07/08/20 20:46> <JAKMARIANNE - Last Filed: 07/08/20 22:31> - General Chief Complaint: Bloody Stools Stated Complaint: VOMITING BLOOD Time Seen by Provider: 07/08/20 17:16 - HPI Notes: 07/08/20 20:31 This patient is a 29-year-old female with a history of Crohn's disease currently on Stelara. She received an injection every 4 weeks. Over the last 10 days she has been passing blood in her stool. She is also vomited some coffee-ground emesis. She has no syncope or lightheadedness. She has had increasing abdominal pain. She denies any fever or chills. 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 She moved here some months ago but has not established GI care yet. She comes in tonight because the pain is becoming intolerable and she is nauseated. She says she has not been able to eat or drink anything in several days. She denies any travel. She denies any exposure to illness. She is otherwise in her usual state of health. (HUGH ISRAEL) - Related Data Allergies/Adverse Reactions: Sulfa (Sulfonamide Antibiotics) Allergy (Verified 05/25/20 15:21) Past Medical History - General Information source: Patient - Social History Smoking Status: Never Smoker Family History: Reviewed & Not Pertinent GI Medical History: Reports: Hx Crohn's Disease - on asacol Psychiatric Medical History: Reports: Hx Depression - Immunizations Hx Diphtheria, Pertussis, Tetanus Vaccination: Yes <HUGH ISRAEL - Last Filed: 07/08/20 20:46> Other: Crohn's disease. Medical history is otherwise as documented in the electronic health record. (HUGH ISRAEL) Review of Systems <HUGH ISRAEL - Last Filed: 07/08/20 20:46> - Review of Systems Notes: All other systems were reviewed and are negative or noncontributory except as noted in the present illness. (HUGH ISRAEL) Physical Exam <HUGH ISRAEL - Last Filed: 07/08/20 20:46> - Vital signs Vitals: Temp 98.4 F 07/08/20 17:16 - Notes Notes: General: This is a well-developed well-nourished somewhat uncomfortable appearing female in no acute distress. Vital signs and nursing chief complaint are reviewed. HEENT grossly within normal limits. Neck: Supple nontender no adenopathy. Lungs: Clear to auscultation. Heart: Regular rate and rhythm no murmur. Abdomen: Soft, active bowel sounds, diffuse direct tenderness with some guarding. No rebound, masses, organomegaly. Extremities: Without clubbing cyanosis or edema. Skin: Warm moist good turgor no rashes. Neuro: Alert oriented x3 no focal neuro deficits. (HUGH ISRAEL) Course - Laboratory Result Diagrams: 07/08/20 16:15 07/08/20 16:15 - Diagnostic Test Radiology reviewed: Image reviewed <HUGH ISRAEL - Last Filed: 07/08/20 20:46> - Laboratory Result Diagrams: 07/08/20 16:15 07/08/20 16:15 - Diagnostic Test Radiology reviewed: Image reviewed, Reports reviewed <MARIANNE BENEDICT - Last Filed: 07/08/20 22:31> - Re-evaluation Re-evalutation: 07/08/20 20:34 Patient rested comfortably throughout her stay. She required multiple doses of morphine and 2 different antiemetics to control her symptoms. She was able to tolerate some oral contrast. CT report is pending at the time of this dictation. Report was given to Dr. Buchanan at 2045 hrs. 07/08/20 20:46 (HUGH ISRAEL) 07/08/20 22:25 Received patient in signout. CT has resulted, it does not have any acute findings, she does have a decent amount of constipation. I went in to discuss work-up with patient. She states that her symptoms are now bearable. She expresses frustration that over the past 2 years since starting Stelara it seems like her symptoms have been out of control. She has recently moved to the area and is trying to establish with a GI doctor as she was previously managed at [facility]. She states that she will intermittently go on steroids, she states that usually she receives an IV dose and then goes on a taper. She does feel comfortable going home at this time. I discussed with her multiple GI resources in the region. She verbalized understanding. Will provide additional dose of pain/nausea medication as the pharmacies are not currently open. We discussed return precautions, patient stable at time of discharge. (MARIANNE BENEDICT) - Vital Signs Vital signs: Temp Pulse Resp BP Pulse Ox 98.4 F 17 113/97 H 85 L 07/08/20 17:16 07/08/20 19:01 07/08/20 19:01 07/08/20 19:01 - Laboratory Laboratory results interpreted by me: 07/08/20 07/08/20 07/08/20 16:15 16:15 19:30 Hgb 11.4 L Hct 35.6 L BUN 6 L Total Protein 8.5 H Urine Blood MODERATE H Discharge <HUGH ISRAEL - Last Filed: 07/08/20 20:46> <MARIANNE BENEDICT - Last Filed: 07/08/20 22:31> - Discharge Clinical Impression: Crohn's disease Qualifiers: Gastrointestinal tract location: unspecified location Digestive disease complication type: without complication Qualified Code(s): K50.90 - Crohn's disease, unspecified, without complications Disposition: HOME, SELF-CARE Additional Instructions: Begin steroid taper. He may use Phenergan for nausea. Also advised starting a daily acid reducing medication, anything [id number] is acceptable. Please follow-up with GI as previously discussed. Turn to the emergency department for any concerning worsening symptoms. Prescriptions: Prednisone [Deltasone 10 mg Tablet] 10 mg PO ASDIR PRN #21 tablet PRN Reason: Promethazine HCl [Phenergan 25 mg Tablet] 1 tab PO Q6H PRN #30 tablet PRN Reason:
--- NOTE | 2020-07-08 20:47 | RADIOLOGY REPORT (SQ) ---
EXAM DESCRIPTION: CT ABDOMEN PELVIS WITH IV CONTRAST COMPLETED DATE/TME: 07/08/2020 20:11 CLINICAL HISTORY: 29 years, Female, Abd pain, bloody stools, hx Crohn's COMPARISON: CT from 03/08/2020 TECHNIQUE: 100 mL of Omnipaque 350. Oral contrast administered. Sagittal coronal reconstruction. Images stored on PACS. All CT scanners at this facility use dose modulation, iterative reconstruction, and/or weight based dosing when appropriate to reduce radiation dose to as low as reasonably achievable (ALARA). FINDINGS: Lung bases, liver, spleen, pancreas, biliary system, adrenal glands aorta and traumatic regions are unremarkable. Kidneys without acute findings. Suspected bifid system on the right.No suspicious bowel or peritoneal abnormalities. Increased colonic stool without suspicious thickening. Spinal stenosis at L4-5 and L5-S1. CT of the pelvis demonstrates mildly distended urinary bladder. Unremarkable uterus and adnexa. No free fluid or adenopathy. No suspicious bowel abnormalities. Bony pelvis is unremarkable. IMPRESSION: 1. No acute findings in the abdomen and pelvis. 2. Increased colonic stool. 3. Spinal stenosis at L4-5 and L5-S1. TECHNICAL DOCUMENTATION: Quality ID # [id number]: Final reports with documentation of one or more dose reduction techniques (e.g., Automated exposure control, adjustment of the mA and/or kV according to patient size, use of iterative reconstruction technique) copyright 2011 [employer]- All Rights Reserved
[2020-07-08] MEDS ORDERED: HYDROMORPHONE HCL INJ/PF 2 MG/ML AMPULE IM ONE (22:24)
[2020-07-08] MEDS ORDERED: PROMETHAZINE HCL INJ 25 MG/1 ML VIAL IV ONE (22:24)
[2020-07-08] MEDS ORDERED: METHYLPREDNISOLONE INJ 125 MG/2 ML SDV IV ONE (22:25)
[2020-07-08] MEDS ORDERED: HYDROCODONE/ACETAMINOPHEN 5-325 MG (6 TAB/ER DISP) PO PRN (22:30)
[2020-07-08 22:50] VITALS: BP 146/86
== END 2020-07-08 22:51 | disposition home or self-care (01) ==
LOC: ER 16:47
DX: K50.90 Crohn's disease, unspecified, without complications (principal); K92.0 Hematemesis; R10.817 Generalized abdominal tenderness; Z79.899 Other long term (current) drug therapy; Z88.2 Allergy status to sulfonamides
CPT/HCPCS: 96376; 99285; 96361; 96374; 96375; 36415; 83690; 85025; 85652; 86140; 80053; 81001; 74177; J2930; J2765; J2270; J1170; C9113; J2550; J2405; J7030; S0028